=== PATIENT | female | born 1980 | race Caucasian/White ===

== ENCOUNTER 2018-09-07 15:21 | Emergency (ER) | payer BC ==
[2018-09-07 15:42] VITALS: BMI 35.9
--- NOTE | 2018-09-07 16:02 | PDOC ---
History of Present Illness - History of Present Illness Initial Comments: 09/07/18 16:31 HPI 37 YOF with no medical history presenting with fever TMax 102.9, nausea, chills , diffuse headache, nasal discharge, sore throat, intermittent ear pain, and generalized body aches since yesterday. Patient states that she noticed some yellow colored nasal discharge yesterday and began to take sudafed and amoxicillin she had at home, last took at 2:30PM without improvement. She reports the nasal discharge is now clear. Patient has also been taking Tylenol at home for her fever. Patient admits to sick contact recently, where she and visited a friend whos teen daughter was sick with viral illness. Patient did have her flu shot this year. LMP was approximately 1 month ago, expecting her period soon. Tolerating PO and fluid intake, but decreased appetite. Denies chest pain, SOB, palpitation, dizziness, weakness, V, D, abdominal pain, bladder and bowel problems, leg swelling, No recent travel. No new changes in medications. Allergies: NKA Past Medical History: None reported. Social history: Lives with family. No smoking. No alcohol. No illicit drugs. Surgical history: None reported. <Naheed Hill - Last Filed: 09/07/18 16:31> - General History Source: Patient Exam Limitations: No Limitations <Nu Juarez - Last Filed: 09/07/18 18:41> - General Chief Complaint: Cold Symptoms Stated Complaint: SINUS INFECTION Time Seen by Provider: 09/07/18 15:33 Past History <Naheed Hill - Last Filed: 09/07/18 16:31> - Past Medical History COPD: No - Suicide/Smoking/Psychosocial Hx Smoking Status: No Smoking History: Never smoked Have you smoked in the past 12 months: No Number of Cigarettes Smoked Daily: 0 Information on smoking cessation initiated: No Hx Alcohol Use: No Drug/Substance Use Hx: No Substance Use Type: None <Nu Juarez - Last Filed: 09/07/18 18:41> - Past Medical History Allergies/Adverse Reactions: Allergies Allergy/AdvReac Type Severity Reaction Status Date / Time No Known Drug Allergies Allergy Verified 09/07/18 16:27 Apples, baby carrots, Allergy trouble Uncoded 09/07/18 15:22 cherries (raw) swallowing Onion (red) Allergy trouble Uncoded 09/07/18 15:22 swallowing Home Medications: Ambulatory Orders Cholecalciferol (Vitamin D3) [Vitamin D3] 2,000 unit PO DAILY capsule 08/29/16 Acetaminophen [Tylenol] 325 mg PO PRN PRN 09/07/18 Oseltamivir Phosphate [Tamiflu -] 75 mg PO BID #10 capsule 09/07/18 Pseudoephedrine HCl [Sudafed] 1 tab PO PRN PRN 09/07/18 Review of Systems - Review of Systems Able to Perform ROS?: Yes Comments:: 09/07/18 16:31 ROS Constitutional: (+) fevers and chills. (+) body aches. HEENT: (+) headache. (+) Nasal congestion. No visual/hearing disturbances. no dizziness. +sore throat, +ear pain. CVS: no cp or syncope. Resp: no sob. No cough. No wheezing. Gastrointestinal: no abdominal pain or vomiting. (+) nausea Genitourinary: no urinary sx, hematuria. MUSCULOSKELETAL: No joint pain and swelling. No neck or back pain. +myalgias SKIN: no redness or skin changes, no discharge, no rash. No wounds. Hematologic: no easy bruising/bleeding. NEUROLOGIC: No dizziness, LOC or altered mental status. No weakness, numbness or tingling. (+) Headache. Allergic/Immunologic: no allergies All other systems reviewed and negative, or as documented in HPI. <Naheed Hill - Last Filed: 09/07/18 16:31> *Physical Exam - Vital Signs Last Vital Signs Temp Pulse Resp BP Pulse Ox 102.5 F H 114 H 20 120/65 100 09/07/18 15:22 09/07/18 15:22 09/07/18 15:22 09/07/18 15:22 09/07/18 15:22 - Physical Exam Comments: 09/07/18 16:31 PE: General: Well appearing, awake and alert, (+) tearful and anxious HEENT: NCAT, PERRL, EOMI, clear conjunctiva, anicteric, moist mucus membranes, clear oropharynx, no oral lesions.. Bilateral T.M clear. No pinna tenderness to manipulation. No tonsillar hypertrophy, uvula midline. Normal phonation. No sinus tenderness to percussion. Neck: neck supple, FROM Resp: CTAB, normal and even respirations, no respiratory distress CVS: +tachycardic, no murmurs, 2+ peripheral pulses throughout, no peripheral edema Abdomen: soft, NTND, no peritoneal signs. Back: nontender, normal inspection and ROM MSK: no edema, WILLS x4, ROM intact. No clubbing or cyanosis. normal bulk and tone. Neuro: alert, oriented appropriately; no focal neurologic deficits Skin: warm and well perfused, cap refill <2 sec, normal color Psych: (+) Very tearful. anxious <Naheed Hill - Last Filed: 09/07/18 16:31> - Vital Signs Last Vital Signs Temp Pulse Resp BP Pulse Ox 102.5 F H 114 H 20 120/65 100 09/07/18 15:22 09/07/18 15:22 09/07/18 15:22 09/07/18 15:22 09/07/18 15:22 <Nu Juarez - Last Filed: 09/07/18 18:41> Moderate Sedation - Procedure Monitoring Vital Signs: Procedure Monitoring Vital Signs Temperature 102.5 F H 09/07/18 15:22 Pulse Rate 114 H 09/07/18 15:22 Respiratory Rate 20 09/07/18 15:22 Blood Pressure 120/65 09/07/18 15:22 O2 Sat by Pulse Oximetry (%) 100 09/07/18 15:22 <Naheed Hill - Last Filed: 09/07/18 16:31> - Procedure Monitoring Vital Signs: Procedure Monitoring Vital Signs Temperature 102.5 F H 09/07/18 15:22 Pulse Rate 114 H 09/07/18 15:22 Respiratory Rate 20 09/07/18 15:22 Blood Pressure 120/65 09/07/18 15:22 O2 Sat by Pulse Oximetry (%) 100 09/07/18 15:22 <Nu Juarez - Last Filed: 09/07/18 18:41> ED Treatment Course - Medications Given in the ED: ED Medications Discontinued Medications Generic Name Dose Route Start Last Admin Trade Name Freq PRN Reason Stop Dose Admin Acetaminophen 975 mg 09/07/18 16:30 09/07/18 16:29 Tylenol - PO 09/07/18 16:31 975 mg ONCE ONE Administration Ibuprofen 600 mg 09/07/18 16:30 09/07/18 16:28 Motrin - PO 09/07/18 16:31 600 mg ONCE ONE Administration <Naheed Hill - Last Filed: 09/07/18 16:31> Medical Decision Making - Medical Decision Making 09/07/18 16:01 hpi as documented VS with fever and tachycardia. very anxious and tearful no meningeal signs ddx influenza, viral syndrome, pharyngitis, AOM, dehydration, febrile illness, strep throat. doubt pna, no respiratory sx or cough/hypoxia. no skin or systemic findings to suggest bacterial infection given antipyretics motrin/tylenol and oral hydration preg test neg strep neg, f/u culture flu test pending on clinical reeval, VS improved, fever down, anxiety controlled. sx better, headache and nausea improved. no clinical benefit to abx, as likely viral syndrome, pharyngitis vs sinusitis supportive care, hydration, rest and otc analgesia/antipyretics advised prn. Pt informed of my clinical impression, treatment recommendations and disposition plan. All questions answered to patient's satisfaction and expressed understanding and comfort with this. Reasons for returning to the ED sooner discussed with the patient otherwise, follow up with primary care physician. At the time of discharge, the patient is alert, clinically improved, tolerating po and verbalizes understanding of instructions. Patient does not suffer from an acute life-threatening medical condition at this time she is safe for outpatient follow-up. called back to pt at 640pm, with +influenza A rx'd tamiflu to the pharmacy. instructions on hand washing and hygiene. c/w supportive care. tamiflu x 5 day treatment. 09/07/18 16:26 09/07/18 17:17 09/07/18 18:41 <Nu Juarez - Last Filed: 09/07/18 18:41> *DC/Admit/Observation/Transfer - Attestations Scribe Attestion: 09/07/18 16:32 Documentation prepared by Naheed Hill, acting as director of medical education for Nu Juarez MD. <Naheed Hill - Last Filed: 09/07/18 16:31> - Discharge Dispostion Decision to Admit order: No - Attestations Physician Attestion: 09/07/18 16:26 I, Nu Juarez MD, attest that this document has been prepared under my direction and personally reviewed by me in its entirety. I further attest, that it accurately reflects all work, treatment, procedures and medical decision -making performed by me. <Nu Juarez - Last Filed: 09/07/18 18:41> Diagnosis at time of Disposition: Fever, Viral syndrome, Influenza A - Discharge Dispostion Disposition: HOME Condition at time of disposition: Improved - Prescriptions Prescriptions: Oseltamivir Phosphate [Tamiflu -] 75 mg PO BID #10 capsule - Referrals Schedule a call back: influenza testing Referrals: [facility] [place] [facility] [place] [Provider Group] [facility] [Provider Group] - Patient Instructions Printed Discharge Instructions: DI for Viral Upper Respiratory Infection -- Adult, DI for Fever (Symptom) -- Adult Additional Instructions: 1) Please follow-up with your primary care doctor in the next 1-2 days. Please call tomorrow for for any urgent issues. 2) You were given a copy of the tests performed today. Please bring the results with you and review them with your primary care doctor. Your laboratory tests including strep test is normal. follow up on your flu testing 3) If you have any worsening of symptoms or any other concerns please return to the ED immediately. Return if worsening symptoms including fevers, headache, vomiting, visual or hearing disturbances, abdominal pain, chest pain, shortness of breath, syncope, dehydration, inability to take things by mouth/vomiting, altered mental status, lethargy, neurologic changes or worsening concerning symptoms. 4) Please continue taking your home medications as directed. your medications on discharge include motrin/tylenol as below. side effects may include upset stomach, abdominal pain, vomiting, or diarrhea. do not drink alcohol with your medications. Please take IBUPROFEN (aka MOTRIN, ADVIL, ALEVE) 400 mg and/or ACETAMINOPHEN ( aka Tylenol) 650-975 mg every 6 hours, as needed, for pain and/or fever. Please do not take these medications if you have a bleeding disorder, stomach or GI ulcer problems or liver disease. Salt water gargles will help. warm lemon or honey tea to soothe the throat for your sinus congestion, you can try sudafed prescription at the pharmacy Stay well hydrated and rest adequately. an appointment. If you cannot follow-up with your primary care doctor please return to the ED - Post Discharge Activity Forms/Work/School Notes: Back to Work
[2018-09-07] MEDS ORDERED: ACETAMINOPHEN 325 MG TABLET (FP) PO ONE (16:30)
[2018-09-07] MEDS ORDERED: IBUPROFEN 600 MG TABLET (FP) PO ONE (16:30)
[2018-09-07 17:04] VITALS: BP 111/68; PULSE 101; TEMP 100
== END 2018-09-07 17:21 | disposition home or self-care (01) ==
LOC: FER 15:21
DX: J09.X2 Influenza due to identified novel influenza A virus with other respiratory manifestations (principal); B34.9 Viral infection, unspecified; R50.9 Fever, unspecified
CPT/HCPCS: 84703; 87070; 87804; 87880; 99282-25

== ENCOUNTER 2019-03-24 01:26 | Emergency (ER) | payer BC ==
--- NOTE | 2019-03-24 01:30 | PDOC ---
History of Present Illness - General Chief Complaint: Psychiatric Stated Complaint: WOKE UP ANXIOUS AND NERVOUS Time Seen by Provider: 03/24/19 01:28 History Source: Patient Exam Limitations: No Limitations - History of Present Illness Initial Comments: 03/24/19 01:30 Ms. Mata is a 38 yo F who presents ambulatory to the ER with a complaint of anxiety Pt reports that she first had a panic attack several years ago when she saw her mother intubated in the ICU The patient has been well since then In July, she was seen by her PMD who initiated Xanax 0.5mg She has intermittently been taking this since July intermittently She felt that the 0.5 did not work for her, she there fore has been taking half of this dose She has noted that over the past few months, she has had worsening anxiety She is now awakening in the middle of the night, jumping out of bed Pt reports that this has been increasingly difficult for her to manage because she lays down at midnight and jumps up at 1am She feels on the edge, when this happens she is concerned about either having a seizure or a stroke (her mother had a stroke) or something else horrible happening to her. During the day time, she does not have these symptoms. He PMD recommended follow up with Cardiology (not sure why) Pt does a [employer] screening yearly (carotid, duplex, echo, EKG screening) Denies SI, HI PMH: denies PSH: denies Meds: Xanax 0.25 prn ALL: multiple food allergies Social: Denies alcohol, drug, cigarette use FH: mother: stroke, no family history of psychiatric d/o ROS: GENERAL/CONSTITUTIONAL: No: fever, chills, weakness . HEAD, EYES, EARS, NOSE AND THROAT: No: change in vision, ear pain, discharge, sore throat, throat swelling. CARDIOVASCULAR: No: chest pain, lightheadedness, palpitations, syncope RESPIRATORY: No: cough, shortness of breath, wheezing, hemoptysis, stridor. GASTROINTESTINAL: No: nausea, vomiting, diarrhea, abdominal pain GENITOURINARY: No: dysuria, hematuria, frequency, urgency, flank pain. MUSCULOSKELETAL: No: back pain, neck pain SKIN: No: lesions, pallor, rash or easy bruising. NEUROLOGIC: No: headache, vertigo, paresthesias, weakness ENDOCRINE: No: unexplained weight gain or loss HEMATOLOGIC/LYMPHATIC: No: anemia, easy bleeding, swelling nodes. PE: GENERAL: The patient is in no acute distress, pt tearful. HEAD: Normal EYES: PERRLA, EOMI, sclera anicteric, conjunctiva clear. ENT: Moist mucous membranes. NECK: Normal range of motion, supple LUNGS: Breath sounds equal, clear to auscultation bilaterally. No wheezes, and no crackles. HEART:Regular rate and rhythm, normal S1 and S2 without murmur, rub or gallop. ABDOMEN: Soft, nontender, normoactive bowel sounds. EXTREMITIES: Normal range of motion, no edema. NEUROLOGICAL: Cranial nerves II through XII grossly intact. Normal speech. No focal neurological deficits. MUSCULOSKELETAL: Back non-tender to palpation, no CVA tenderness SKIN: Warm, Dry, normal turgor, no rashes or lesions noted. 03/24/19 01:31 03/24/19 02:07 03/24/19 02:18 Is this a multiple visit Asthma Patient?: No Past History - Past Medical History Allergies/Adverse Reactions: Allergies Allergy/AdvReac Type Severity Reaction Status Date / Time No Known Drug Allergies Allergy Verified 03/24/19 01:28 Apples, baby carrots, Allergy trouble Uncoded 03/24/19 01:28 cherries (raw) swallowing Onion (red) Allergy trouble Uncoded 09/07/18 15:22 swallowing Home Medications: Ambulatory Orders Alprazolam [Xanax] 0.25 mg PO PRN 03/24/19 COPD: No - Psycho Social/Smoking Cessation Hx Smoking Status: No Smoking History: Never smoked Have you smoked in the past 12 months: No Number of Cigarettes Smoked Daily: 0 Hx Alcohol Use: No Drug/Substance Use Hx: No Substance Use Type: None Medical Decision Making - Medical Decision Making 03/24/19 01:41 EKG: Twelve-lead EKG was performed and reviewed by me. There is normal sinus rhythm with a normal rate. The axis is normal. The intervals are normal. There are no ST or T wave abnormalities. Impression: Normal twelve-lead EKG Will give Benadryl Will allow patient to rest in the ER Pt asked to follow up with PMD or Psych Discharge - Discharge Information Problems reviewed: No Clinical Impression/Diagnosis: Anxiety Condition: Stable Disposition: HOME - Admission No - Additional Discharge Information Prescription Drug Monitoring Program (I-STOP) results: I-STOP not reviewed - Follow up/Referral Referrals: Betty Bob MD [Primary Care Provider] - Ghada Lund MD [Staff Physician] - Carol Borja [Staff Physician] - Elham Gonsalez [Staff Physician] - - Patient Discharge Instructions Patient Printed Discharge Instructions: Illness Anxiety Disorder, Anxiety Disorders, Anxiety and Panic Attacks (Alternative Therapy), DI for Anxiety -- Adult, Yoga May Help Reduce Anxiety and Stress Additional Instructions: Ms. Mata, Thank you for coming in to the ER tonight Return to the emergency department immediately with ANY new, persistent or worsening symptoms. Continue any medications as previously prescribed by your physician - xanax 0.25mg po prn (may increase to 0.5 mg po prn) You should follow up with your primary doctor as soon as possible regarding today's emergency department visit. I have also included several psychologists/psychiatrists that may be able to help you manage your symptoms with therapy or other tyes of medications. Thank you for coming to the [facility] today for your care. It was a pleasure to see you today. Please note that your evaluation is INCOMPLETE until you follow-up with your doctor. - Post Discharge Activity Work/Back to School Note: Back to Work
[2019-03-24 01:33] VITALS: BP 132/82; PULSE 84; TEMP 98.1; BMI 36.9
[2019-03-24] MEDS ORDERED: diphenhydrAMINE HCL 25 MG CAPSULE (FP) PO ONE ×2 (01:40→02:13)
--- NOTE | 2019-03-24 10:13 | EKG ---
Test Reason : Blood Pressure : / mmHG Vent. Rate : 081 BPM Atrial Rate : 081 BPM P-R Int : 166 ms QRS Dur : 090 ms QT Int : 364 ms P-R-T Axes : 054 044 048 degrees QTc Int : 422 ms NORMAL SINUS RHYTHM NORMAL ECG NO PREVIOUS ECGS AVAILABLE Confirmed by Dilip Eric MD ([id number]) on 03/24/2019 10:13:30 AM Referred By: RADHA DAHL Confirmed By:Dilip Eric MD
== END 2019-03-24 02:49 | disposition home or self-care (01) ==
LOC: FER 01:26
DX: F41.9 Anxiety disorder, unspecified (principal); Z91.018 Allergy to other foods
CPT/HCPCS: 93005; 99281-25

== ENCOUNTER 2020-06-25 18:16 | Emergency (ER) | payer BC | END 2020-06-25 21:46 | disposition home or self-care (01) | LOC: JER 18:16 | DX: R51.9 Headache, unspecified (principal) | CPT/HCPCS: 99283-25 ==

== ENCOUNTER 2021-08-16 20:18 | Emergency (ER) | payer BC ==
[2021-08-16 20:24] VITALS: BP 123/79; PULSE 88; TEMP 98.6; BMI 37.0
[2021-08-16] MEDS ORDERED: methylPREDNISolone NA SUCC 125 MG/2 ML VIAL IVPB ONE (20:26)
[2021-08-16] MEDS ORDERED: methylPREDNISolone NA SUCC 125 MG/2 ML VIAL ONE (20:27)
[2021-08-16 20:59] LABS: ALBUMIN 4.2 g/dl (3.4-5.0); BILIRUBIN,TOTAL 0.6 mg/dl (0.2-1); CALCIUM 9.6 mg/dl (8.5-10); CREATININE 0.8 mg/dl (0.55-1.3); TOT PROT 7.2 g/dl (6.4-8.2)
[2021-08-16] MEDS ORDERED: ALPRAZolam 0.25 MG TABLET PO ONE (21:08)
[2021-08-16] MEDS ORDERED: ALPRAZolam 0.25 MG TABLET ONE (21:12)
[2021-08-16 22:10] LABS: BASO % 0.6 % (0-2.0); EOS % 1.7 % (0-4.5); HEMATOCRIT 40.1 % (32.4-45.2); HEMOGLOBIN 13.5 GM/dL (10.7-15.3); LYMPH % 57.5 % (8-40); MCHC 33.6 g/dl (32.0-36.0); MEAN CELL VOLUME 83.2 fl (80-96); MEAN PLT VOLUME 10.2 fl (7.5-11.1); MONO % 5.4 % (3.8-10.2); NEUT % 34.8 % (42.8-82.8); PLATELET COUNT 291 10^3/uL (134-434); RBC 4.81 M/mm3 (3.60-5.2); RDW 14.2 % (11.6-15.6); WHITE BLOOD COUNT 6.8 K/mm3 (4.0-10.0)
== END 2021-08-17 00:46 | disposition home or self-care (01) ==
LOC: FER 20:18
PROC: 3E033GC Introduction of Other Therapeutic Substance into Peripheral Vein, Percutaneous Approach (ICD-10-PCS; principal; 2021-08-16)
PROC: 3E033GC Introduction of Other Therapeutic Substance into Peripheral Vein, Percutaneous Approach (ICD-10-PCS; 2021-08-16)
DX: T78.40XA Allergy, unspecified, initial encounter (principal)
CPT/HCPCS: 36415; 80053; 85025; 99284-25

== ENCOUNTER 2022-06-25 16:38 | Emergency (ER) | payer BC ==
[2022-06-25 16:56] VITALS: BP 128/68; PULSE 71; RESP 20; TEMP 98.3; BMI 37.0
[2022-06-25 17:37] LABS: HCG,QUALITATIVE URINE Negative
[2022-06-25 18:26] LABS: HEMATOCRIT 38.2 % (32.4-45.2); HEMOGLOBIN 12.9 G/dL (10.7-15.3); MCHC 33.8 g/dl (32.0-36.0); MEAN CELL VOLUME 83.1 fl (80-96); MEAN PLT VOLUME 9.2 fl (7.5-11.1); PLATELET COUNT 234.1 10^3/uL (134-434); RDW 14.7 % (11.6-15.6); WHITE BLOOD COUNT 7.9 10^3/uL (4.0-10.8)
[2022-06-25 18:34] LABS: ALBUMIN 4.2 g/dl (3.4-5.0); ALK PHOS 56 U/L (45-117); ANION GAP 6 MMOL/L (8-16); BILIRUBIN,TOTAL 0.6 mg/dl (0.2-1); CALCIUM 8.8 mg/dl (8.5-10); CHLORIDE 105 mmol/L (98-107); CO2 24 mmol/L (21-32); CREATININE 0.7 mg/dl (0.55-1.3); GLUCOSE,RANDOM 92 mg/dl (74-106); SGOT/AST 19 U/L (15-37); SGPT/ALT 20 U/L (13-61); SODIUM 135 mmol/L (136-145); TOT PROT 7.6 g/dl (6.4-8.2)
[2022-06-25 18:53] LABS: PLATELET ESTIMATE ADEQUATE
[2022-06-25 20:50] LABS: LIPASE 134 U/L (73-393)
== END 2022-06-25 20:15 | disposition home or self-care (01) ==
LOC: FER 16:38
DX: R00.2 Palpitations (principal); F41.9 Anxiety disorder, unspecified
CPT/HCPCS: 36415; 71046-TC-FY; 74190-TC-FY; 80053; 81003; 83690; 84484; 84703; 85027; 93005; 99285-25

== ENCOUNTER 2022-08-14 04:11 | Day surgery (SDC) | payer BC ==
[2022-08-08 13:22] VITALS: BMI 36.8
[2022-08-14] MEDS ORDERED: MIDAZOLAM HCL 2 MG/2 ML SINGLE DOSE VIAL ONE (09:30)
[2022-08-14] MEDS ORDERED: oxyCODONE HCL 5 MG TABLET PO PRN ×3 (10:08→11:09)
[2022-08-14] MEDS ORDERED: ONDANSETRON 4 MG/2 ML VIAL IVPUSH PRN ×2 (10:08→11:09)
[2022-08-14] MEDS ORDERED: LACTATED RINGERS SOLUTION 1,000 ML IV SCH ×2 (10:15→10:30)
[2022-08-14] MEDS ORDERED: PROPOFOL 20 ML ONE (10:20)
[2022-08-14] MEDS ORDERED: LIDOCAINE HCL/PF 2% SDV 5ML VIAL ONE (10:20)
[2022-08-14] MEDS ORDERED: PROMETHAZINE HCL 25 MG/1 ML VIAL IVPB PRN (10:26)
[2022-08-14] MEDS ORDERED: ONDANSETRON 4 MG/2 ML VIAL ONE (10:41)
[2022-08-14] MEDS ORDERED: DEXAMETHASONE SOD PHOSPHATE 4 MG/1 ML VIAL ONE (10:41)
[2022-08-14] MEDS ORDERED: KETOROLAC TROMETHAMINE 30 MG/1 ML VIAL ONE (10:42)
[2022-08-14] MEDS ORDERED: IBUPROFEN 800 MG/8 ML IJ IVPB PRN (11:09)
[2022-08-14] MEDS ORDERED: IBUPROFEN 600 MG TABLET (FP) PO PRN (11:09)
[2022-08-14] MEDS ORDERED: ELECTROLYTE-148 SOLN 1,000 ML IV SCH (11:15)
[2022-08-14] MEDS ORDERED: ALPRAZolam 0.25 MG TABLET PO ONE (12:11)
[2022-08-14 13:27] VITALS: RESP 18
[2022-08-14 14:35] VITALS: BP 110/60; PULSE 65; TEMP 97.9
== END 2022-08-14 14:10 | disposition home or self-care (01) ==
LOC: JASU-SURG 04:11
PROVIDERS: ATTEND Obstetrics & Gynecology
PROC: 0UB98ZZ Excision of Uterus, Via Natural or Artificial Opening Endoscopic (ICD-10-PCS; principal; 2022-08-14 09:30)
DX: N93.9 Abnormal uterine and vaginal bleeding, unspecified (principal); N84.0 Polyp of corpus uteri
CPT/HCPCS: 81025; 88305-TC; 94760

== ENCOUNTER 2023-04-18 06:00 | Day surgery (SDC) | payer BC ==
[2023-04-18 08:43] VITALS: BMI 36.6
[2023-04-18] MEDS ORDERED: FENTANYL CITRATE/PF 50 MCG/ML VIAL ONE (15:21)
[2023-04-18] MEDS ORDERED: PROPOFOL 40 ML ONE (15:21)
[2023-04-18] MEDS ORDERED: MIDAZOLAM HCL 2 MG/2 ML SINGLE DOSE VIAL ONE (15:21)
[2023-04-18] MEDS ORDERED: PROPOFOL 20 ML ONE (15:33)
[2023-04-18] MEDS ORDERED: DEXAMETHASONE SOD PHOSPHATE 4 MG/1 ML VIAL ONE (15:42)
[2023-04-18] MEDS ORDERED: SODIUM CHLORIDE 0.9% P/F 10 ML VIAL IJ ONE (15:42)
[2023-04-18] MEDS ORDERED: LIDOCAINE HCL/PF 2% SDV 5ML VIAL ONE (15:42)
[2023-04-18] MEDS ORDERED: KETOROLAC TROMETHAMINE 30 MG/1 ML VIAL ONE ×2 (15:42)
[2023-04-18] MEDS ORDERED: ceFAZolin SODIUM 1 GM VIAL IVPB ONE (15:42)
[2023-04-18] MEDS ORDERED: ONDANSETRON 4 MG/2 ML VIAL ONE (15:42)
[2023-04-18] MEDS ORDERED: IBUPROFEN 600 MG TABLET (FP) PO PRN (15:55)
[2023-04-18] MEDS ORDERED: oxyCODONE HCL 5 MG TABLET PO PRN ×2 (15:55→16:07)
[2023-04-18] MEDS ORDERED: IBUPROFEN 800 MG/8 ML IJ IVPB PRN (15:55)
[2023-04-18] MEDS ORDERED: ONDANSETRON 4 MG/2 ML VIAL IVPUSH PRN (15:55)
[2023-04-18] MEDS ORDERED: LACTATED RINGERS SOLUTION 1,000 ML IV SCH (16:15)
[2023-04-18] MEDS ORDERED: ELECTROLYTE-148 SOLN 1,000 ML IV SCH (16:30)
[2023-04-18 18:11] VITALS: RESP 16
[2023-04-18 18:13] VITALS: BP 96/57; PULSE 65; TEMP 97
== END 2023-04-18 18:00 | disposition home or self-care (01) ==
LOC: JASU-SURG 06:00
PROVIDERS: ATTEND Obstetrics & Gynecology
PROC: 10D17ZZ Extraction of Products of Conception, Retained, Via Natural or Artificial Opening (ICD-10-PCS; principal; 2023-04-18 15:00)
DX: O02.1 Missed abortion (principal)
CPT/HCPCS: 88305-TC; 94760